=== PATIENT | female | born 1995 | race Caucasian/White ===

== ENCOUNTER 2021-08-23 06:03 | Inpatient (IN) | payer OTHER ==
--- NOTE | 2021-08-22 07:40 | P.HPOB ---
History of Present Illness H&P Date: 08/22/21 Chief Complaint: Repeat section. This patient is a pleasant 26-year-old 6 para 1 female estimated date of confinement 08/27/2021 estimated gestational age 39-3/7 weeks who presents to labor and delivery for elective repeat section. Patient had a previous section for failure to progress at another institution as requested repeat section this . Patient's care has been complicated by tobacco use and small for gestational age but otherwise has been uncomplicated. Review of Systems Genitourinary: Reports Menstruation: Reports amenorrhea Past Medical History Past Medical History: Thyroid Disorder Additional Past Medical History / Comment(s): CURRENT MISSED AB. HX HYPOT HYROID, OFF RX SINCE 2011, NL NOW. HX HEART MURMUR AT . History of Any Multi-Drug Resistant Organisms: None Reported Past Surgical History: Section, Cholecystectomy Past Anesthesia/Blood Transfusion Reactions: No Reported Reaction Past Psychological History: Anxiety, Bipolar, Depression Additional Psychological History / Comment(s): BIPOLAR 2 W/ HYPOMANIA; MANIC DEPRESSION - NOT UNDER TX CURRENTLY. Past Alcohol Use History: None Reported Past Drug Use History: None Reported - Past Family History Mother Family Medical History: Cancer Medications and Allergies Home Medications Medication Instructions Recorded Confirmed Type Ibuprofen [Motrin] 600 mg PO Q6HR PRN #40 tab 11/14/13 Rx Allergies Allergy/AdvReac Type Severity Reaction Status Date / Time codeine Allergy Vomiting Verified 11/14/13 12:54 Exam - OBG Physical Exam Abdomen: bowel sounds normal, no diffuse tenderness, no bruit present, no guarding noted, no hepatomegaly, no splenomegaly, no mass Vulva: both: normal Vagina: normal moisture, no discharge Cervix: no lesion, no discharge Uterus: enlarged Results labs show she is A+, rubella immune, RPR nonreactive, hepatitis B negative, HIV is negative, Glucola was 127, group B strep was negative, growth ultrasounds has shown small for gestational age most recently mild polyhydramnios. Assessment and Plan Assessment: This is a pleasant 26-year-old 6 para 1 female 39-3/7 weeks gestation who presents for elective repeat section. Patient I have discussed the surgery and risks and risks of infection, bleeding, possible injury bowel, bladder, vessels, and/or other organs. All the patient's questions have been answered and a written consent is obtained. (1) 39 weeks gestation of Status: Acute Code(s): Z3A.39 - 39 WEEKS GESTATION OF SNOMED Code(s): 72246387 (2) Previous delivery affecting Status: Acute Code(s): O34.219 - MATERNAL CARE FOR UNSP TYPE SCAR FROM PREVIOUS DEL SNOMED Code(s): 575500403 (3) Tobacco abuse Status: Acute Code(s): Z72.0 - TOBACCO USE SNOMED Code(s): 281291676
[2021-08-22 15:15] VITALS: BMI 35.3
[~2021-08-23 06:03] MED LIST: LACTATED RINGERS 1,000 ML IV SCH
[2021-08-23] MEDS ORDERED: CITRIC ACID-SODIUM CITRATE 15 ML CUP PO ONE (06:18)
[2021-08-23] MEDS ORDERED: LACTATED RINGERS 1,000 ML IV ONE (06:18)
[2021-08-23] MEDS ORDERED: LACTATED RINGERS 1,000 ML IV SCH (06:18)
[2021-08-23 06:52] LABS: Basophils # (A) 0.1 k/uL (0-0.2); Basophils % (A) 1 %; Eosinophils # (A) 0.5 k/uL (0-0.7); Eosinophils % (A) 4 %; HCT 36.6 % (34.0-46.0); Lymphocytes # (A) 2.5 k/uL (1.0-4.8); Lymphocytes % (A) 21 %; MCH 27.8 pg (25.0-35.0); MCHC 32.9 g/dL (31.0-37.0); MCV 84.4 fL (80.0-100.0); Mean Platelet Volume 9.1; Monocytes # (A) 0.6 k/uL (0-1.0); Monocytes % (A) 5 %; Neutrophils # (A) 7.8 k/uL (1.3-7.7); Neutrophils % (A) 66 %; Platelet Count 283 k/uL (150-450); RBC 4.33 m/uL (3.80-5.40); RDW 13.8 % (11.5-15.5); WBC 11.8 k/uL (3.8-10.6)
[2021-08-23] MEDS ORDERED: ONDANSETRON 4 MG/2 ML VIAL ONE (08:10)
[2021-08-23] MEDS ORDERED: PHENYLEPHRINE-0.9% NACL SYG 1,000 MCG/10 ML SYRINGE ONE (08:10)
[2021-08-23] MEDS ORDERED: KETOROLAC 15 MG/ML 1 ML VIAL ONE (08:10)
[2021-08-23] MEDS ORDERED: OXYTOCIN 10 UNIT/ML 1 ML VIAL ONE (08:10)
[2021-08-23] MEDS ORDERED: MORPHINE SULFATE (PF) 0.3 MG/0.3 ML SYR ONE (08:10)
[2021-08-23] MEDS ORDERED: NALBUPHINE 10 MG/ML (1 ML AMP) ONE (08:10)
[2021-08-23] MEDS ORDERED: NALOXONE 0.4 MG/ML 1 ML VIAL IV PRN ×2 (09:02→13:21)
[2021-08-23] MEDS ORDERED: SIMETHICONE 80 MG CHEWABLE PO PRN (09:02)
[2021-08-23] MEDS ORDERED: LANOLIN CREAM 5 GM TUBE TOPICAL PRN (09:02)
[2021-08-23] MEDS ORDERED: diphenhydrAMINE 50 MG/ML 1 ML VIAL IVP PRN (09:02)
[2021-08-23] MEDS ORDERED: METOCLOPRAMIDE 5 MG/ML 2 ML VIAL IVP PRN (09:02)
[2021-08-23] MEDS ORDERED: ZOLPIDEM 5 MG TAB PO PRN (09:02)
[2021-08-23] MEDS ORDERED: diphenhydrAMINE 25 MG CAP PO PRN (09:02)
[2021-08-23] MEDS ORDERED: OXYTOCIN 30 UNITS/500 ML NS 30 UNIT in SALINE 1 500ML.BAG IV SCH (09:02)
[2021-08-23] MEDS ORDERED: ONDANSETRON 4 MG/2 ML VIAL IVP PRN (09:02)
[2021-08-23] MEDS: SENNOSIDES-DOCUSATE SODIUM 1 EACH TAB PO SCH ×2 (10:17→20:43)
--- NOTE | 2021-08-23 11:30 | P.OP ---
Date of Procedure: 08/23/21 Preoperative Diagnosis: #1: 39-3/7 week intrauterine . #2: Previous section desires repeat. Postoperative Diagnosis: Same Procedure(s) Performed: Repeat low transverse section Anesthesia: spinal Surgeon: Wesley Mroocho Estimated Blood Loss (ml): 810 Pathology: none sent Condition: stable Disposition: floor Indications for Procedure: Please see dictated H&P for intimate details of this patient's admission. Brief summary this is a pleasant 26-year-old 6 para 1 female estimated gestational age 39-3/7 weeks gestation who presents to labor and delivery for requested repeat section. Patient understands this surgery and risks and risks of infection, bleeding, possible injury bowel, bladder, vessels, and/or other organs. All the patient's questions are answered and written consent is obtained. Operative Findings: This is a vigorous viable female infant Apgars were 9 and 9 delivery time was 0828 hours. Description of Procedure: This patient has a Loza catheter placed to straight drain. She subsequent taken to the operating room where she sat up and spinal anesthetic is administered without incident. With an adequate level of anesthesia she has abdominal prep and drape. Scalpels and taken in the previous Pfannenstiel incision is incised. A second scalpel is taken down the fascia the fascia scored with a knife. Fascial incision extended bilaterally using the Segura scissors. Fascia is then dissected off the rectus muscles sharply. Rectus muscles are the peritoneum was identified and entered sharply. Peritoneal incision extended superior and inferior without difficulty. Bladder blade is then placed. Bladder peritoneum was taken sharply off the lower uterine segment. Scalpels then taken and a low transverse uterine incision is made. Using a hemostat I enter the uterine cavity bluntly and there is loss of clear fluid. This incision is extended bluntly. The infant's head is then guided through the incision with fundal pressure delivered. Mouth and nares are bulb suctioned. There is no evidence of a nuchal cord. With more fundal pressure with delivery the rest this 's body. This is a vigorous viable female infant Apgars are 9 and 9 delivery time was 0828 hours. After delivery of the the umbilical cord is doubly clamped and cut. The is then handed off to the nurses in attendance. Placenta is then manually extracted intact. It is somewhat ratty but it is all removed. This done the uterus is externalized uterine incision demarcated with Renteria clamps. There is a small extension on the left side lower uterine segment this is repaired with 0 Vicryl running locked fashion 2 layers. Rest of the uterine incision is closed using 0 Vicryl running locked fashion is well and in 2 layers. Excellent he mostasis is noted. The bladder peritoneum was then reapproximated using a 3-0 Vicryl. Excess fluid is removed from the abdomen and pelvis. The uterus, tubes, ovaries appear normal for term gestation. The parietal peritoneum was then identified and closed using 0 Vicryl running fashion. Rectus muscles reapproximated in 0 Vicryl interrupted fashion. Fascial incision is then closed using 0 PDS. Fascial incision is inspected and found to be intact and hemostatic. Subcutaneous tissues and closed using a 3-0 Vicryl. Skin is and closed using krysten. All counts are correct 3. There are no complications. and mother taken the birthing suite in satisfactory condition.
[2021-08-23] MEDS: ACETAMINOPHEN TAB 500 MG TAB PO SCH ×2 (13:16→20:42)
[2021-08-23] MEDS: KETOROLAC 15 MG/ML 1 ML VIAL IVP SCH ×2 (17:42→23:29)
[2021-08-23] MEDS: LACTATED RINGERS 1,000 ML IV SCH (22:05)
[2021-08-23] MEDS: IBUPROFEN 600 MG TAB PO SCH (22:05)
[2021-08-24] MEDS: LACTATED RINGERS 1,000 ML IV SCH ×2 (01:44→20:25)
[2021-08-24] MEDS: IBUPROFEN 600 MG TAB PO SCH ×5 (01:56→21:06)
[2021-08-24] MEDS: ACETAMINOPHEN TAB 500 MG TAB PO SCH ×5 (01:56→23:27)
[2021-08-24] MEDS: SENNOSIDES-DOCUSATE SODIUM 1 EACH TAB PO SCH ×2 (07:53→20:02)
[2021-08-24 08:56] LABS: Basophils % (A) 0 %; Eosinophils # (A) 0.3 k/uL (0-0.7); Eosinophils % (A) 3 %; HCT 36.8 % (34.0-46.0); HGB 11.8 gm/dL (11.4-16.0); Lymphocytes # (A) 1.2 k/uL (1.0-4.8); Lymphocytes % (A) 12 %; MCH 27.7 pg (25.0-35.0); MCV 86.4 fL (80.0-100.0); Monocytes # (A) 0.4 k/uL (0-1.0); Monocytes % (A) 4 %; Neutrophils % (A) 79 %; Platelet Count 212 k/uL (150-450); RBC 4.26 m/uL (3.80-5.40); RDW 13.6 % (11.5-15.5); WBC 10.2 k/uL (3.8-10.6)
--- NOTE | 2021-08-24 12:14 | P.PN ---
Progress Note - Text Progress Note Date: 08/24/21 (6447) Anesthesia Postop day 1 Subjective: Status Post section with Duramorph. Patient seen and examined. Doing well.. VAS 5-6 out of 10. Tolerable. No nausea or vomiting. Mild pruritus tolerable.. Afebrile. Gross lower extremity strength intact. . Without apparent anesthetic complications. Objective: Vital signs reviewed Heart: Regular Rate Lungs: Good chest excursion Abdomen: Appears nondistended Assessment: Status post with Duramorph postop day 1 Plan: Continue current care with your medical management.
[2021-08-24] MEDS: KETOROLAC 15 MG/ML 1 ML VIAL IVP SCH (20:25)
[2021-08-25] MEDS: ACETAMINOPHEN TAB 500 MG TAB PO SCH ×2 (02:36→08:11)
[2021-08-25] MEDS: IBUPROFEN 600 MG TAB PO SCH ×2 (05:03→11:10)
[2021-08-25] MEDS: SENNOSIDES-DOCUSATE SODIUM 1 EACH TAB PO SCH (08:12)
[2021-08-25 08:23] VITALS: BP 122/79; PULSE 85; RESP 18; TEMP 98.6
--- NOTE | 2021-08-25 11:54 | P.PNOBGPC ---
Subjective - Subjective Principal diagnosis: Status post repeat low transverse section POD #1 Interval history: This a late entry from 08/24/2021. Patient is doing well. She is ambulating. She is breast-feeding. Lochia is decreasing. Her pain has been fairly well-controlled with ibuprofen and Tylenol. She had been passing flatus but no bowel movement yet. Patient reports: Reports appetite normal, Reports voiding normally, Reports pain well controlled, Reports ambulating normally : doing well, nursing well Objective - Vital Signs Latest vital signs: Vital Signs Temp Pulse Resp BP Pulse Ox 08/25/21 08:00 98.6 F 85 18 122/79 100 08/24/21 23:59 98.7 F 69 14 119/73 98 08/24/21 18:00 72 16 109/67 97 08/24/21 16:00 98.9 F 92 16 116/79 98 Intake and Output 08/24/21 08/25/21 08/25/21 22:59 06:59 14:59 Other: # Voids 2 2 2 # Bowel Movements 1 - Exam Extremities: Present: normal. Absent: tenderness, edema Abdomen: Present: normal appearance, soft (Positive bowel sounds 4). Absent: distention, tenderness Incision: Present: normal, dry, intact Uterus: Present: normal, firm. Absent: tenderness Assessment and Plan Assessment: Status post repeat low transverse section postoperative day #1 Plan: Continue with postoperative pain control. Encouraged ambulation. Continue working on breast-feeding.
--- NOTE | 2021-08-25 11:58 | P.DS ---
Providers Date of admission: 08/23/21 06:03 Expected date of discharge: 08/25/21 Attending physician: Wesley Morocho Primary care physician: Stated None Hospital Course: This is a 26-year-old female 6 para 1 at 39-3/7 weeks who presented for scheduled repeat section. Please see history and physical and operative note for details the patient omission. She has done fairly well postoperatively. She did have some increased postoperative pain on postoperative day #1. She was given some oxycodone which did help relieve some of the pain. She also has passed some flatus and bowel movement which has helped also. She is breast-feeding without difficulty. Lochia is decreasing. Vital signs are stable. Abdomen is soft with positive bowel sounds 4. Incision is clean dry and intact with krysten in place. Extremities show negative Homans. Impression is status post repeat low transverse section postoperative day #2. Plan is to discharge home today. Routine postoperative and instructions are given. She will be given a prescription for ibuprofen and oxycodone. She has been counseled regarding opioid use and has signed a consent form. She will follow up with Dr. Morocho in approximately 1 week for a postoperative check and in 6 weeks for check. She is advised to call the office if she has any further questions or concerns prior to her appointment time. Procedures: Repeat low transverse section on 08/23/2021 Patient Condition at Discharge: Stable Plan - Discharge Summary Discharge Rx Participant: Yes New Discharge Prescriptions: New Ibuprofen [Motrin] 600 mg PO Q6H #60 tab oxyCODONE HCL [OxyIR] 5 mg PO Q4HR PRN #12 tab PRN Reason: Pain Scale 4 - 6 Discharge Medication List Ibuprofen [Motrin] 600 mg PO Q6H #60 tab 08/25/21 [Rx] oxyCODONE HCL [OxyIR] 5 mg PO Q4HR PRN #12 tab 08/25/21 [Rx] Follow up Appointment(s)/Referral(s): Wesley Morocho MD [STAFF PHYSICIAN] - 10/02/21 9:30 am (Post Op 09-02-2021 @ 1:30p.m.) Activity/Diet/Wound Care/Special Instructions: Instructions 1. Do not begin any exercise program for 3 weeks. 2. Do not resume sexual relations for 3 weeks or longer if uncomfortable. 3. You may take tub baths or showers at any time. 4. You may use tampons if desired after 3 weeks. 5. Keep the area of episiotomy (stitches) clean and dry. 6. If you are not nursing, wear a good fitting, supportive bra during the day and limit fluid intake for at least 1 week to prevent breast engorgement. 7. Call the office, [phone], within the next week to make appointment for your 6 week checkup if it has not already been made. 8. Report any of the following occurrences to the doctor promptly: a. Heavy, excessive bleeding b. Chills, fever c. Burning or frequency of urination d. Pain or redness and breasts if nursing e. Increasing pain or swelling in episiotomy (stitches). In addition to the above instructions, the following additional should be followed: 1. No heavy lifting or straining (exercising) until after 6 week checkup. 2. Keep abdominal incision clean and dry: You may wear a dressing if more co mfortable. 3. Make office appointment for 10 days after going home or as instructed by her doctor. Discharge Disposition: HOME SELF-CARE
== END 2021-08-25 13:00 | disposition home or self-care (01) | DRG 787 ==
LOC: 4FBP 06:03
PROVIDERS: ADMIT Obstetrics & Gynecology; ATTEND Obstetrics & Gynecology
PROC: 10D00Z1 Extraction of Products of Conception, Low, Open Approach (ICD-10-PCS; principal; 2021-08-23 08:00)
DX: O34.211 Maternal care for low transverse scar from previous cesarean delivery (principal); F31.81 Bipolar II disorder; O36.5930 Maternal care for other known or suspected poor fetal growth, third trimester, not applicable or unspecified; E03.9 Hypothyroidism, unspecified; O99.334 Smoking (tobacco) complicating childbirth; F41.9 Anxiety disorder, unspecified; O99.73 Diseases of the skin and subcutaneous tissue complicating the puerperium; L29.9 Pruritus, unspecified; O99.284 Endocrine, nutritional and metabolic diseases complicating childbirth; O99.344 Other mental disorders complicating childbirth; Z37.0 Single live birth; Z3A.39 39 weeks gestation of pregnancy; Z88.5 Allergy status to narcotic agent; Z87.59 Personal history of other complications of pregnancy, childbirth and the puerperium; Z90.49 Acquired absence of other specified parts of digestive tract
CPT/HCPCS: 85025; 86850; 86900; 86901